=== PATIENT | male | born 1965 | race Caucasian/White ===

== ENCOUNTER 2024-02-07 07:25 | Day surgery (SDC) | payer BC ==
[~2024-02-07] VITALS: Ht 172.7 cm; Wt 76.4 kg
[~2024-02-07 07:25] MED LIST: ASPIR 8181 MG PO; BUSPIRONE HCL30 MG PO; CLONAZEPAM1 MG PO; DULOXETINE HCL30 MG PO; IBLOOD GLUCOSE TEST STRIP 1 EA TEST VI PRN; L-METHYL-B6-B11 EACH PO; LACTATED RINGER'S 1,000 ML IV SCH; LIDOCAINE HCL 1% 5 ML SDV INJ ONE; MIDAZOLAM HCL 5 MG/5 ML VIAL IV PRN; MINIMED RESERV1 EAC1 MC; MULTI-VITAMIN1 EACH PO; QUINAPRIL HCL10 MG PO; ROSUVASTATIN CA20 MG PO; VITAMIN D31250 MC1 PO; XALATAN2.5 ML OPTH; fentaNYL citrate 100 MCG/2 ML VIAL IV PRN
[2024-02-07 07:48] VITALS: BP 102/80
--- NOTE | 2024-02-07 07:49 | NUR ---
VISITED DURING SPIRITUAL CARE ROUNDS. PT SUPPORTED BY SPOUSE IN ROOM. BOTH IN OVERALL GOOD SPIRITS, NO IMMEDIATE NEEDS. QUARRY EXTRACTION WORKER PROVIDED SUPPORTIVE PRESENCE, HOSPITALITY, PRAYER, FACILTITATED INTERACTION WITH THERAPY ANIMAL. PT AND SPOUSE EXPRESSED GRATITUDE.
[2024-02-07] MEDS ORDERED: MIDAZOLAM HCL 5 MG/5 ML VIAL ONE ×2 (08:14→08:35)
[2024-02-07] MEDS ORDERED: fentaNYL citrate 100 MCG/2 ML VIAL ONE (08:14)
--- NOTE | 2024-02-07 09:12 | NUR ---
02/07/24 0912 Zaida Petty [id number] ARRIVES TO PACU RESTING ON HIS LT SIDE, PT AWAKE, DENIES PAIN OR NAUSEA, PT ENCOURAGED TO PASS GAS. VSS ON RA,REU.
[2024-02-07 09:22] VITALS: BP 119/72
--- NOTE | 2024-02-09 10:27 | OR ---
[facility] [address], [place] [address] Signed DATE OF OPERATION: 02/07/2024 SURGEON: Janeen Dietz MD PREOPERATIVE DIAGNOSES: 1. History of adenomatous polyp, sigmoid 2020 and mild inactive proctitis. 2. Negative family history of colon cancer. POSTOPERATIVE DIAGNOSIS: Essentially normal colon; mild proctitis. PROCEDURE: Total colonoscopy to cecum. ANESTHESIA: Intravenous sedation; fentanyl 150 mcg, Versed 8 mg. 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 Eric Suresh. He underwent colonoscopy in 2020. There was noted to have a polyp at the sigmoid colon and mild proctitis. 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 Pathology report confirmed a tubular adenoma and chronic inactive colitis of the rectum. He is currently symptom free, having no bleeding, diarrhea or constipation and has no family history of colon cancer. He is admitted at this time to undergo colonoscopy for surveillance. He understands the risk of bleeding, infection, and perforation. FINDINGS: The prep was excellent. Complete colonoscopy was undertaken to the cecum with full intubation of the cecum. There was no sign of recurrent or new polyp. He did have clinical appearance of mild proctitis, but biopsies were not obtained at this time. PROCEDURE IN DETAIL: The patient was brought to the endoscopy suite and placed in lateral decubitus position, given intravenous sedation to the point of slurred speech and nystagmus. Digital rectal examination was normal. An Olympus video colonoscope was passed in the rectum and manipulated throughout the colon ultimately intubating the cecum itself. The ileocecal valve and appendiceal orifice were normal. Scope was withdrawn from that point. Examination showed no sign Electronically Signed By: JANEEN DIETZ MD 02/09/24 1027 PATIENT NAME: ELI MAXWELL OPERATIVE REPORT DATE OF : 69 REPORT #: [id number] PHYSICIAN: JANEEN DIETZ MD PCP: ERIC SURESH DO REPORT IS CONFIDENTIAL AND NOT TO BE RELEASED WITHOUT AUTHORIZATION [facility] [address], [place] [address] Signed of polyps or diverticula. Retroflexed view of the rectum showed mild inflammation but very insignificant and biopsies were not obtained. Scope was straightened, withdrawn and removed. The patient was taken to recovery room in good condition. CONCLUDING DIAGNOSIS: Essentially normal colon, a few scattered diverticula of the sigmoid were noted which were small. MD SARAH Syed/LISAL /[id number] cc: Eric Suresh DO Copies: ERIC SURESH DO ~ Electronically Signed By: JANEEN DIETZ MD 02/09/24 1027 PATIENT NAME: ELI MAXWELL OPERATIVE REPORT DATE OF : 69 REPORT #: [id number] PHYSICIAN: JANEEN DIETZ MD PCP: ERIC SURESH DO REPORT IS CONFIDENTIAL AND NOT TO BE RELEASED WITHOUT AUTHORIZATION
== END 2024-02-07 09:30 | disposition home or self-care (01) ==
LOC: DS 07:25
PROVIDERS: ATTEND Surgery
PROC: 0DJD8ZZ Inspection of Lower Intestinal Tract, Via Natural or Artificial Opening Endoscopic (ICD-10-PCS; principal; 2024-02-07 08:30)
DX: Z12.11 Encounter for screening for malignant neoplasm of colon (principal); K62.89 Other specified diseases of anus and rectum; K57.30 Diverticulosis of large intestine without perforation or abscess without bleeding; E10.9 Type 1 diabetes mellitus without complications; I10 Essential (primary) hypertension; Z86.0101 Personal history of adenomatous and serrated colon polyps; Z88.2 Allergy status to sulfonamides; Z79.82 Long term (current) use of aspirin; Z79.899 Other long term (current) drug therapy
CPT/HCPCS: 99153; G0500; J2250; J3010; J7121